=== PATIENT | female | born 1960 | race Caucasian/White ===

== ENCOUNTER 2020-06-15 09:06 | Outpatient (CLI) | payer BC, SELFPAY ==
--- NOTE | 2020-06-15 09:11 | ECG_ITS ---
Measurements Intervals [place] Rate: 64 P: 64 [place]: 137 QRS: 9 QRSD: 106 T: 3 QT: 453 QTc: 471 Interpretive Statements SINUS RHYTHM POSSIBLE LEFT ATRIAL ENLARGEMENT INCOMPLETE RIGHT BUNDLE BRANCH BLOCK POSSIBLE LEFT VENTRICULAR HYPERTROPHY BORDERLINE ST-T WAVE ABNORMALITY- INFERIOR LEADS BASELINE ARTIFACT- I, II, III, AVR, AVL, AVF, V1-V3 BORDERLINE ECG Electronically Signed On 06-15-2020 10:00:59 [employer] by Dimas Best D.O.
[2020-06-15 09:55] LABS: Basophils Absolute Auto 0.1 K/mm3 (0.0-0.1); Basophils Percent Auto 0.5 % (0.2-1.2); Eosinophils Absolute Auto 0.2 K/mm3 (0-0.3); Eosinophils Percent Auto 1.6 % (0-4.4); Hematocrit 40.8 % (37.0-47.0); Hemoglobin 13.9 g/dL (12.0-15.0); Immature Granulocyte Absolute 0.03 K/mm3 (0.00-0.031); Immature Granulocyte Percent A 0.3 % (0-0.5); Lymphocytes Percent Auto 20.1 % (18.3-44.2); Mean Corpuscular HGB Conc 34.1 g/dl (32-36); Mean Corpuscular Hemoglobin 32.6 pg (26-34); Mean Corpuscular Volume 95.8 fl (80-100); Monocytes Absolute Auto 0.7 K/mm3 (0.1-0.6); Monocytes Percent Auto 6.2 % (2.6-8.5); Neutrophils Absolute Auto 7.8 K/mm3 (1.3-6.7); Neutrophils Percent Auto 71.3 % (45.5-73.1); Platelet Count Result 265 k/mm3 (150-375); Red Blood Count 4.26 M/mm3 (4.2-5.4); Red Cell Distribution Width 13.9 % (11.5-14.5)
[2020-06-15 10:09] LABS: Anion Gap 6 mmol/L (8-16); Blood Urea Nitrogen 15 mg/dL (7-17); Calcium 9.1 mg/dL (8.4-10.2); Carbon Dioxide 25 mmol/L (22-30); Chloride 106 mmol/L (98-107); Estimated Glomerular Filt Rate > 60; Glucose 113 mg/dL (65-105); Potassium 4.1 mmol/L (3.4-5.0); Sodium 137 mmol/L (137-145)
== END 2020-06-15 09:07 | disposition home or self-care (01) ==
LOC: ANHSURGERY 09:11
PROVIDERS: PCP Internal Medicine; Visit Provider Surgery
DX: Z01.818 Encounter for other preprocedural examination (principal); K43.2 Incisional hernia without obstruction or gangrene; F17.200 Nicotine dependence, unspecified, uncomplicated
CPT/HCPCS: 36415; 80048; 85025; 86850; 86900; 86901; 93005

== ENCOUNTER → 2020-06-16 03:06 | Outpatient (CLI) | payer BC, SELFPAY ==
[2020-06-16 18:11] LABS: SARS-CoV-2 RNA PCR Negative
== END ==
PROVIDERS: PCP Internal Medicine; Visit Provider Surgery
DX: Z01.812 Encounter for preprocedural laboratory examination (principal); Z20.822 Contact with and (suspected) exposure to COVID-19
CPT/HCPCS: C9803; U0003; U0005

== ENCOUNTER 2020-06-19 01:28 | Day surgery (SDC) | payer BC, SELFPAY ==
[2020-06-14 11:00] VITALS: BMI 22.6
[2020-06-19] VITALS (8 sets, daily range): BP systolic 165–218; BP diastolic 84–109; PULSE 49–78; RESP 12–18; TEMP 36.3–36.4; O2SAT 94–100
[2020-06-19] MEDS: ACETAMINOPHEN 500 MG TABLET 1000 MG PO (10:25)
[2020-06-19] MEDS: KETOROLAC 15 MG/ML VIAL (*BKC) IV PUSH (10:27)
[2020-06-19] MEDS: LACTATED RINGERS 1,000 ML 30 ML IV CONT ×2 (10:30→17:16)
--- NOTE | 2020-06-19 11:11 | WPDANESEPPF ---
Anes - Initial Pre Proc Eval Procedure: Operation Date: 06/19/20 12:00 Proposed Procedures p Laparoscopic Ventral Incisional Hernia Repair With Mesh, Possible Open - David Bryan MD Date/Time: 06/19/20 11:11 Surgeon: David Bryan MD Pre Op Diagnosis: LLQ Ventral Incisional Hernia Patient Data Age: 60 Gender: F Height: 5 ft 1 in Weight: 51.8 kg Last Vital Signs Temp 36.4 C 06/19/20 10:04 Pulse 78 06/19/20 10:04 Resp 18 06/19/20 10:04 BP 175/84 H 06/19/20 10:04 Pulse Ox 100 06/19/20 10:04 Allergies Allergy/AdvReac Type Severity Reaction Status Date / Time No Known Allergies Allergy Unverified 06/19/20 10:07 Home Medications Medication Instructions Recorded Confirmed Type vitamin E 1 cap PO DAILY 06/14/20 06/19/20 History Patient hx anesthesia problems: none Family hx anesthesia problems: none PMFSH Past Medical History Medical History Smoker Surgical History Surgical History Epigastric hernia H/O umbilical hernia repair Social History Social History Years smoked: 40 Smoking status: Current every day smoker Tobacco type: cigarettes and e-cigarettes/vaping Alcohol intake: never Substance use: unknown Additional occupation/education comments: Stylist Gender identity (if verbalized by the patient): Female Spiritual care concerns: No Anes - Eval Final PreProcedure Day of Procedure 06/19/20 11:11 Patient weight: normal Heart: regular rate and rhythm Lungs: clear to auscultation Airway: Mallampati scale class II Neurological: alert and oriented Last oral intake: >/= 8 hours ASA classification: II Emergent: no Anesthetic plan: proceed Anesthesia type and monitoring: general ETT and standard monitoring Informed Consent: The patient's anesthetic plan and its attendant risks and benefits were discussed with the patient/family/POA. Questions were solicited and answers provided to the satisfaction of the patient/family/POA.
--- NOTE | 2020-06-19 13:09 | SUR.PREOP ---
1225 PT UPDATED ON TIME OF SURGERY DELAY, DENIES NEEDS AT THIS TIME
--- NOTE | 2020-06-19 13:09 | SUR.PREOP ---
Addendum entered by Vanessa Goldstein RN 06/19/20 14:28: PT CONCERNED ABOUT ELDERLY FAMILY MEMBER WHO WILL BE PICKING HER UP. VISABLY UPSET ABOUT DELAY, DENIES NEEDS AT THIS TIME Original Note: 1310 PT UPDATED ON CONTINUED SURGERY TIME DELAY
--- NOTE | 2020-06-19 14:58 | WPDHPUPDATE1 ---
History and Physical Update Update Date/Time: 06/19/20 14:58 History and Physical has been reviewed, including an updated exam of the patient. There are NO changes in the patient's condition. Risks, benefits, and alternatives have been discussed and questions answered. Patient agrees to proceed with procedure.
--- NOTE | 2020-06-19 15:16 | SUR.PREOP ---
1450 PT HAS BEEN UP TO RESTROOM SEVERAL TIMES. DR. FIORE HERE TO SEE PT.
[2020-06-19] MEDS: ceFAZolin 2 GM/D5W 50 ML 2 GM/50 ML BAG IVPB (15:26)
[2020-06-19] MEDS: BUPIVACAINE/EPINEPHRINE 0.5% 30 ML VIAL INFILTRATE (15:26)
--- NOTE | 2020-06-19 17:18 | PM.PROC ---
Procedure Note - Detailed Date of procedure: 06/19/20 Pre-op diagnosis: LLQ Ventral Incisional Hernia Post-op diagnosis: other (Left lower quadrant incarcerated (colon) Ventral incisional hernia ) Procedure performed: Laparoscopic left lower quadrant ventral incisional (incarcerated) hernia repair with mesh. Description of procedure: DESCRIPTION OF PROCEDURE: The patient was placed in the supine position on the operative table and after induction of adequate general endotracheal anesthesia by Jimmy Anesthesia, the entire abdomen was prepped and draped in usual sterile fashion and the head placed slightly up. Prior to our prep and drape we did place a Lara catheter at the beginning of this case. An Ioban drape was used to prevent contact of the mesh with the skin during this clean case. Following this, local anesthetic was placed and a spot selected about two fingerbreadths below the costal margin on the left and a small incision made after instilling local anesthetic using 0.25% Marcaine with epinephrine. Following this, a Veress needle technique using the water drop test was completed. Using 2 towel clips on the skin, I carefully elevated the skin and then passed the Veress needle into the abdomen and we could see that the saline droped through the Veress needle easily. CO2 gas was connected and the abdomen was insufflated to 14 mm Hg pressure after starting out at around 9. Following this, 0 degree 5 mm laparoscope was placed inside a 5 mm trocar, which was carefully twisted into the abdomen without difficulty, seeing a open pneumoperitoneum as we entered. Thus, the trocar was removed, the sleeve confirmed to be nicely within the abdomen, and we carefully inspected the abdomen. Careful inspection of the abdomen revealed no inguinal hernias. We could see some adhesions that were filmy to the underside of the previously placed 11 cm round mesh in the central abdomen. It appeared that there was a loop of sigmoid colon was covering the left lower quadrant ventral incisional hernia that we were after. At this point using this left upper quadrant incision or port site we placed 2 more ports in the right lower quadrant ride mid abdomen under direct vision with laparoscoped. A 12 mm port was placed in the right lower quadrant and a 5 mm port was placed about skilled nursing between the costal margin and the anterior suprailiac spine fairly lateral in the right abdomen. There was no incarceration of any omentum or any other adhesions to the underside of the umbilicus. I did then take down some of the adhesions to the underside of the previously paced placed 11 cm mesh under the umbilicus and upper midline. The falciform was involved some of these adhesions and I stopped when I got to the upper part of the mesh in the left adhesions there and the falciform attached to the anterior abdominal wall. This gave us plenty of room to work. Using the 30 degree 5 mm scope position in the right upper quadrant port site I used the other 2 port sites to carefully separate the colon from the left lateral abdominal wall with place the patient in Trendelenburg position slightly rolled toward the right. I was able to place gentle traction on the sigmoid colon and this inverted the hernia. I then used the L-shaped cautery to carefully take down the adhesions to the hernia sac and hernia sac was turned inside out incompletely divided preserving a colon by keeping it pulled into the abdomen. We calculi than expected inspected the colon and there were no signs of injury to the wall of the sigmoid colon that had been incarcerated in this hernia. There was about a 3 cm but transverse by 2 cm vertical defect in the fascial wall of the lateral abdominal wall in the area once we had the colon pulled away from the opening of the hernia. Then before applying the mesh I decided to put to 1. Vicryl sutures through the subcutaneous tissues and into the fascia on either side of the defect to pull it
[2020-06-19] MEDS: hydrALAZINE HCL 20 MG/ML VIAL 5 MG IV PUSH ×2 (17:30→18:44)
[2020-06-19] MEDS: fentaNYL CITRATE INJ (*CRX) 100 MCG/2 ML VIAL 25 MCG IV PUSH ×4 (17:40→18:13)
[2020-06-19] MEDS: oxyCODONE HCL (*CRX) 5 MG TAB IR PO (18:46)
--- NOTE | 2020-06-19 19:18 | SUR.PHASEII ---
Patient encouraged to follow-up with Primary Care Physician in regards to hypertension. RN provided information about hypertension at discharge.
== END 2020-06-19 19:10 | disposition home or self-care (01) ==
PROVIDERS: PCP Internal Medicine; Visit Provider Surgery
PROC: (CPT 49655; principal; 2020-06-19 12:00)
DX: K43.0 Incisional hernia with obstruction, without gangrene (principal); F17.210 Nicotine dependence, cigarettes, uncomplicated; F17.290 Nicotine dependence, other tobacco product, uncomplicated
CPT/HCPCS: 49655; 36415; 80048; 85025; 86850; 86900; 86901; 93005; A9270; C1781; C9803; J0360; J0690; J1100; J1170; J1885; J2250; J2405; J2704; J2710; J3010; J7120; U0003; U0005

== ENCOUNTER → 2020-08-17 13:38 | Outpatient (REF) | payer BC, SELFPAY | LOC: ANHLAB 13:38 | PROVIDERS: PCP Internal Medicine; Visit Provider Nurse Practitioner | DX: D49.2 Neoplasm of unspecified behavior of bone, soft tissue, and skin (principal); L57.0 Actinic keratosis | CPT/HCPCS: 88305 ==

== ENCOUNTER 2022-03-14 12:43 | Emergency (ER) | payer OTHER, SELFPAY ==
--- NOTE | 2022-03-14 13:08 | ED.URI ---
HPI - URI/Sore Throat General Chief Complaint: Upper Respiratory Infection Stated Complaint: throat discomfort Time Seen by Provider: 03/14/22 13:11 Source: patient and RN notes reviewed Mode of arrival: ambulatory Limitations: no limitations History of Present Illness HPI Narrative: 61-year-old female presents to the [facility] with throat discomfort for several days. States like it occasionally feels swollen. patient also states that it feels like there is something in there occasionally. Does not happen all the time. States it also may be her esophagus. No difficulty breathing or eating. Does not have a primary care provider. Denies chest pain, shortness of breath. Denies abdominal pain, vomiting. Patient is a smoker Related Data Home Medications Medication Instructions Recorded Confirmed No Home Medications 08/28/20 03/14/22 Allergies Allergy/AdvReac Type Severity Reaction Status Date / Time No Known Allergies Allergy Verified 03/14/22 13:04 Review of Systems Review of Systems: All systems reviewed & are unremarkable except as noted in HPI and below Constitutional: Constitutional: Reports no additional constitutional complaints, Denies chills and Denies fever(s) Eyes: Eyes: Reports no additional eye complaints ENT: Reports as per HPI Cardiovascular: Cardiovascular: Reports no additional cardiovascular complaints Respiratory: Respiratory: Reports no additional respiratory complaints Gastrointestinal: Gastrointestinal: Reports no additional gastrointestinal complaints Musculoskeletal: Musculoskeletal: Reports no additional musculoskeletal complaints Integumentary/Breasts: Skin/Breast: Reports system reviewed and no additional complaints, except as docu Neurologic: Reports system reviewed and no additional complaints, except as documented Psychiatric: Psychiatric: Reports no additional psychiatric complaints Allergic/Immunologic: Allergic/Immunologic: Reports no additional allergic/immunologic complaints [facility] Past Medical History Medical History Smoker Surgical History Surgical History Epigastric hernia H/O umbilical hernia repair Ventral incisional hernia Social History Social History Years smoked: 40 Smoking status: Current every day smoker Tobacco type: cigarettes and e-cigarettes/vaping Alcohol intake: never Substance use: unknown Additional occupation/education comments: Stylist Gender identity (if verbalized by the patient): Female Spiritual care concerns: No Comments At the time of my signature, I reviewed and agree with the nursing past medical, surgical, social, and family history. There is no relevant family history pertinent to the patient complaint. Exam Const: General: healthy appearing, no acute distress, alert and well nourished Nutritional Appearance: well nourished Orientation/consciousness: patient oriented x3 Limitations: no limitations HENMT: Head: normal to inspection Ears: external ears normal, TM's normal bilaterally and EAC's normal Face/Nose/Sinus: Normal external nose present and Normal nares present Face and sinus: normal facial exam Mouth: Yes Normal oral and palatal mucosa present, Yes lip normal and Yes moist mucous membranes Teeth and gingiva: dentition normal Throat: posterior oropharynx normal and uvula midline Eyes: General: appearance normal, both eyes and all related structures Conjunctivae: conjunctivae normal Pupils: Equal, round and reactive pupils present Neck: Neck: normal visual inspection, no lymphadenopathy and no meningeal signs Chest: Chest palpation & inspection: normal inspection of the chest Resp: Effort & Inspection: normal respiratory effort and no use of accessory muscles Auscultation: clear to auscultation bilaterally, no crackles, no rales, no rhonchi and no wheezes Cardio: Rate: regul
[2022-03-14 13:12] VITALS: BP 169/96; PULSE 68; RESP 18; TEMP 36.4; O2SAT 99
== END 2022-03-14 13:23 | disposition home or self-care (01) ==
PROVIDERS: Emergency Provider Nurse Practitioner
DX: R07.0 Pain in throat (principal); F17.219 Nicotine dependence, cigarettes, with unspecified nicotine-induced disorders; F17.290 Nicotine dependence, other tobacco product, uncomplicated
CPT/HCPCS: 99211; G0463